=== PATIENT | female | born 1985 | race Caucasian/White ===

== ENCOUNTER → 2017-04-26 | Outpatient (CLI) | payer OTHER ==
[~2017-04-26] MED LIST: ENOXAPARIN40 MG/0.4 SQ; Fabb Tablet1 EACH PO; IBUP800 PO; OXYACE5T PO; Percocet 5-3251 EACH PO; Verotin-Gr Cap1 EACH PO
[2017-04-28 12:23] LABS: HPV Genotype 16 Not Detected (NOTDET); HPV Genotype 18 Not Detected (NOTDET)
[2017-05-14 09:22] LABS: HPV High Risk Other Not Detected (NOTDET)
== END | disposition home or self-care (01) ==
LOC: LAB 16:11
PROVIDERS: Obstetrics & Gynecology
DX: Z12.4 Encounter for screening for malignant neoplasm of cervix (principal)
CPT/HCPCS: 87624; G0123

== ENCOUNTER 2018-11-22 10:29 | Day surgery (SDC) | payer OTHER ==
[~2018-11-22] VITALS: Ht 170.2 cm; Wt 85.7 kg
--- NOTE | 2018-11-22 11:41 | NUR ---
Ambulatory in Day Surgery History, Chart, Medications and Allergies reviewed before start of procedure.Lungs clear T/O to Auscultation. Patient confirms NPO status and agrees with scheduled surgery. Patient reports completing Chlorhexadine shower X2 prior to admission to hospital.Surgical site prepped with 2% Chlorhexidine cloth wipe. Patient States Post-Procedure ride home has been arranged.
--- NOTE | 2018-11-22 16:07 | NUR ---
SMALL AMOUNT RED DISCHARGE AT UMBILICAL SURGICAL INCISION. GAUZE PLACED WITH TAPE. EXTRA GUAZE AND TAPE GIVEN TO PT. PT DRESSED, ICE PACKS GIVEN FOR COMFORT. SMALL AMOUNT VAGINAL BLEEDING NOTED, PADS GIVEN. MEDICATED WITH 800MG MOTRIN FOR 3/10 PAIN. Discharge instructions reviewed with patient. Patient verbalizes understanding. Copy given to patient to take home. Discharged via wheelchair to private car for ride home.
== END 2018-11-22 22:58 | disposition home or self-care (01) ==
LOC: ORSCMMR 10:29 → ORD 11:15 → ORSCMMR 11:55 → ORD 12:00 → ORSCMMR 12:00
PROVIDERS: Obstetrics & Gynecology
PROC: 0UT14ZZ Resection of Left Ovary, Percutaneous Endoscopic Approach (ICD-10-PCS; principal; 2018-11-22 11:55)
PROC: 0UT64ZZ Resection of Left Fallopian Tube, Percutaneous Endoscopic Approach (ICD-10-PCS; principal; 2018-11-22 11:55)
DX: N94.89 Other specified conditions associated with female genital organs and menstrual cycle (principal); N83.12 Corpus luteum cyst of left ovary; K66.0 Peritoneal adhesions (postprocedural) (postinfection)
CPT/HCPCS: 88305; J1100; J1885; J2250; J2405; J2704; J2710; J3010; J7120

== ENCOUNTER → 2019-12-04 | Outpatient (CLI) | payer OTHER | LOC: LAB SHORT 21:45 → LAB 21:45 | DX: J02.9 Acute pharyngitis, unspecified (principal) | CPT/HCPCS: 87070 ==

== ENCOUNTER → 2020-01-17 | Outpatient (CLI) | payer OTHER ==
[2020-01-18 09:45] LABS: G. vaginalis (DNA Probe) Negative (NEGATIVE); T. vaginalis (DNA Probe) Positive (NEGATIVE)
[2020-01-18 09:46] LABS: Candida species (DNA Probe) Negative (NEGATIVE)
[2020-01-19 02:07] LABS: CHLAMYDIA TRACHOMATIS, NAA Negative (Negative)
== END | disposition home or self-care (01) ==
LOC: LAB 14:49 → LAB SHORT 14:49
PROVIDERS: Family Medicine
DX: Z11.3 Encounter for screening for infections with a predominantly sexual mode of transmission (principal); N89.8 Other specified noninflammatory disorders of vagina
CPT/HCPCS: 87480; 87491; 87510; 87591; 87660

== ENCOUNTER → 2021-06-09 | Outpatient (CLI) | payer OTHER ==
[2021-06-09 21:36] LABS: Alanine Aminotransfer (ALT/SGP 65 U/L (12-78); Albumin/Globulin Ratio 1.1 (0.8-1.8); Alk Phos 116 U/L (50-136); Anion Gap 7 mmol/L (6-16); Aspartate Aminotrans (AST/SGOT 33 U/L (12-37); Bilirubin, Total 0.3 mg/dL (0.1-1.0); Blood Urea Nitrogen 17 mg/dL (8-24); Bun/Creatinine Ratio 19.1 (12.0-20.0); CHOL/HDL RATIO 4.4; CO2, Blood 28 mmol/L (21-32); Calcium, Blood 9.6 mg/dL (8.5-10.1); Chloride, Blood 106 mmol/L (98-108); Cholesterol 196 mg/dL (50-200); Creatinine, Blood 0.89 mg/dL (0.40-1.00); Globulin, Blood 3.5 g/dL (2.2-4.0); Glomerular Filtration Rate >60 (60-); Glucose, Blood 82 mg/dL (70-99); HDL Cholesterol 45 mg/dL (>39); LDL/HDL RATIO 2.4; Low Density Lipoprotein Chol 109 mg/dL (0-110); Potassium, Blood 4.4 mmol/L (3.5-5.5); Sodium, Blood 141 mmol/L (136-145); Total Protein, Blood 7.5 g/dL (6.4-8.2); Triglycerides 210 mg/dL (30-140); Very Low Density Lipoprot Chol 42 mg/dL (6-28)
== END | disposition home or self-care (01) ==
LOC: LAB SHORT 15:15
PROVIDERS: Family Medicine
DX: Z00.00 Encounter for general adult medical examination without abnormal findings (principal)
CPT/HCPCS: 80053; 80061; 84443

== ENCOUNTER → 2022-06-15 | Outpatient (CLI) | payer OTHER ==
[2022-06-16 15:11] LABS: HPV 16 Negative (Negative); HPV 18 Negative (Negative); HPV OTHER HR TYPES Negative (Negative)
== END | disposition home or self-care (01) ==
LOC: LAB SHORT 17:31 → LAB 17:31
PROVIDERS: Family Medicine
DX: Z12.4 Encounter for screening for malignant neoplasm of cervix (principal)
CPT/HCPCS: 87624; G0145

== ENCOUNTER 2023-08-29 05:52 | Emergency (ER) | payer OTHER ==
[~2023-08-29] VITALS: Ht 170.2 cm; Wt 95.7 kg
[2023-08-29] MEDS ORDERED: Promethazine HCl 25 MG Tab PO ONE (06:55)
[2023-08-29] MEDS ORDERED: DRIZALMA SPRINK30 MG PO (06:59)
[2023-08-29] MEDS ORDERED: AMPDEX10CR PO (06:59)
[2023-08-29] MEDS ORDERED: Neurontin300 MG PO (06:59)
[2023-08-29] MEDS ORDERED: SUMAtriptan Succinate 6 MG/0.5 ML Vial SC ONE (07:00)
[2023-08-29] MEDS ORDERED: PROM25 PO (07:03)
[2023-08-29] MEDS ORDERED: SUMA25 PO (07:03)
[2023-08-29 07:23] VITALS: BP 138/88
== END 2023-08-29 07:29 | disposition home or self-care (01) ==
LOC: ER 05:52
DX: G43.909 Migraine, unspecified, not intractable, without status migrainosus (principal); Z88.8 Allergy status to other drugs, medicaments and biological substances; Z79.899 Other long term (current) drug therapy
CPT/HCPCS: 96372; 99283-25; A9270; J3030